=== PATIENT | male | born 1995 | race Caucasian/White ===

== ENCOUNTER 2018-02-07 23:16 | Inpatient (IN) | payer BC ==
[2018-02-08] MEDS: METOCLOPRAMIDE 10 MG INJ IV (05:21)
[2018-02-08] MEDS: DEXTROSE 5%-0.45% NACL 1,000 ML IV ×2 (05:23→17:03)
[2018-02-08] MEDS ORDERED: NACL 0.9% 3 ML SYG IV (05:30)
[2018-02-08] MEDS ORDERED: ALBUTEROL/IPRATROPIUM (NEB) 3 ML AMP HHN (05:30)
[2018-02-08] MEDS: morphine 4 MG/ML VIAL IV (05:31)
[2018-02-08] MEDS: PANTOPRAZOLE 40 MG INJ IV (05:33)
[2018-02-08 08:56] LABS: ADD MAN DIFF? NO
[2018-02-08 09:08] LABS: BASOPHIL # 0.1 10^3/ul (0.0-0.1); BASOPHILS % 0.3 % (0.0-2.0); EOSINOPHILS % 0.1 % (0.0-7.0); HEMATOCRIT 41.7 % (42.0-52.0); HEMOGLOBIN 14.7 g/dl (14.0-18.0); LYMPHOCYTES # 2.1 10^3/ul (0.8-2.9); LYMPHOCYTES % 13.8 % (18.0-55.0); MEAN CORPUSCULAR HEMOGLOBIN 29.2 pg (29.0-33.0); MEAN CORPUSCULAR HGB CONC 35.3 g/dl (32.0-37.0); MEAN CORPUSCULAR VOLUME 82.9 fl (72.0-104.0); MEAN PLATELET VOLUME 10.1 fl (7.4-10.4); MONOCYTE # 1.1 10^3/ul (0.3-0.9); MONOCYTES % 7.3 % (0.0-13.0); NEUTROPHIL # 11.9 10^3/ul (1.6-7.5); NEUTROPHILS % 77.9 % (30.0-74.0); PLATELET COUNT 309 10^3/UL (140-415); RED BLOOD COUNT 5.03 10^6/ul (4.70-6.10); RED CELL DISTRIBUTION WIDTH 12.9 % (11.5-14.5)
[2018-02-08 09:08] LABS: WHITE BLOOD COUNT 15.2 10^3/ul (4.8-10.8)
[2018-02-08 09:18] LABS: HEMOGLOBIN A1C 5.2 % (0-5.9)
[2018-02-08 09:30] LABS: ALANINE AMINOTRANSFERASE 24 IU/L (13-69); ALBUMIN 4.8 g/dl (3.3-4.9); ALBUMIN/GLOBULIN RATIO 1.45; ALKALINE PHOSPHATASE 90 IU/L (42-121); ANION GAP 12 (5-13); ASPARTATE AMINO TRANSFERASE 22 IU/L (15-46); BILIRUBIN,INDIRECT 1.7 mg/dl (0-1.1); BILIRUBIN,TOTAL 1.7 mg/dl (0.2-1.3); BLOOD UREA NITROGEN 11 mg/dl (7-20); CALCIUM 9.6 mg/dl (8.4-10.2); CARBON DIOXIDE 25 mmol/L (21-31); CHLORIDE 103 mmol/L (97-110); CREATININE 0.83 mg/dl (0.61-1.24); Estimated GFR > 60 mL/min (>60); GLUCOSE 117 mg/dl (70-220); MAGNESIUM 2.4 mg/dl (1.7-2.5); PHOSPHORUS 3.7 mg/dl (2.5-4.9); POTASSIUM 3.5 mmol/L (3.5-5.1); SODIUM 140 mmol/L (135-144); TOTAL PROTEIN 8.1 g/dl (6.1-8.1)
[2018-02-08 13:27] LABS: THYROID STIMULATING HORMONE 0.834 MIU/L (0.465-4.680)
[2018-02-09] MEDS: DEXTROSE 5%-0.45% NACL 1,000 ML IV ×4 (01:27→21:02)
[2018-02-09 05:56] LABS: ADD MAN DIFF? NO
[2018-02-09 06:00] LABS: BASOPHIL # 0.1 10^3/ul (0.0-0.1); BASOPHILS % 0.4 % (0.0-2.0); EOSINOPHILS # 0.1 10^3/ul (0.0-0.5); EOSINOPHILS % 0.8 % (0.0-7.0); HEMATOCRIT 41.9 % (42.0-52.0); HEMOGLOBIN 14.7 g/dl (14.0-18.0); LYMPHOCYTES % 33.8 % (18.0-55.0); MEAN CORPUSCULAR HEMOGLOBIN 29.8 pg (29.0-33.0); MEAN CORPUSCULAR HGB CONC 35.1 g/dl (32.0-37.0); MEAN CORPUSCULAR VOLUME 84.8 fl (72.0-104.0); MEAN PLATELET VOLUME 10.1 fl (7.4-10.4); MONOCYTE # 1.1 10^3/ul (0.3-0.9); MONOCYTES % 8.9 % (0.0-13.0); NEUTROPHIL # 6.6 10^3/ul (1.6-7.5); NEUTROPHILS % 55.4 % (30.0-74.0); PLATELET COUNT 282 10^3/UL (140-415); RED BLOOD COUNT 4.94 10^6/ul (4.70-6.10); RED CELL DISTRIBUTION WIDTH 12.8 % (11.5-14.5)
[2018-02-09] MEDS: PANTOPRAZOLE 40 MG INJ IV (06:00)
[2018-02-09 06:20] LABS: ANION GAP 13 (5-13); BLOOD UREA NITROGEN 12 mg/dl (7-20); CALCIUM 9.6 mg/dl (8.4-10.2); CARBON DIOXIDE 29 mmol/L (21-31); CHLORIDE 101 mmol/L (97-110); CREATININE 0.78 mg/dl (0.61-1.24); Estimated GFR > 60 mL/min (>60); GLUCOSE 107 mg/dl (70-220); MAGNESIUM 2.3 mg/dl (1.7-2.5); PHOSPHORUS 4.6 mg/dl (2.5-4.9); POTASSIUM 3.8 mmol/L (3.5-5.1); SODIUM 143 mmol/L (135-144)
[2018-02-09] MEDS: ONDANSETRON 4 MG INJ IV (08:42)
[2018-02-09] MEDS: morphine 4 MG/ML VIAL IV ×2 (08:43→16:46)
[2018-02-09] MEDS: METOCLOPRAMIDE 10 MG INJ IV ×2 (11:05→16:46)
[2018-02-09] MEDS: LIDOCAINE/MYLANTA 40 ML BTL PO (18:21)
[2018-02-09] MEDS: TRIMETHOBENZAMIDE 100 MG/ML VIAL IM (18:22)
[2018-02-09] MEDS: HYOSCYAMINE 0.125 MG SUBL TAB SL (20:58)
[2018-02-09] MEDS: SOD CHLORIDE 0.9% 100 ML (22:00)
[2018-02-09] MEDS: IOHEXOL 300MG/ML 150 ML BTL (22:00)
[2018-02-10] MEDS: HYOSCYAMINE 0.125 MG SUBL TAB SL ×3 (00:09→12:52)
[2018-02-10] MEDS: METOCLOPRAMIDE 10 MG INJ IV ×3 (00:09→12:52)
[2018-02-10] MEDS: ONDANSETRON 4 MG INJ IV (03:03)
[2018-02-10] MEDS: morphine 4 MG/ML VIAL IV (03:39)
[2018-02-10 05:27] LABS: ADD MAN DIFF? NO
[2018-02-10 05:32] LABS: BASOPHIL # 0.1 10^3/ul (0.0-0.1); BASOPHILS % 0.4 % (0.0-2.0); EOSINOPHILS % 0.1 % (0.0-7.0); HEMATOCRIT 41.3 % (42.0-52.0); HEMOGLOBIN 14.4 g/dl (14.0-18.0); LYMPHOCYTES # 1.7 10^3/ul (0.8-2.9); MEAN CORPUSCULAR HEMOGLOBIN 29.1 pg (29.0-33.0); MEAN CORPUSCULAR HGB CONC 34.9 g/dl (32.0-37.0); MEAN CORPUSCULAR VOLUME 83.4 fl (72.0-104.0); MEAN PLATELET VOLUME 10.1 fl (7.4-10.4); MONOCYTES % 8.6 % (0.0-13.0); NEUTROPHIL # 9.2 10^3/ul (1.6-7.5); NEUTROPHILS % 76.4 % (30.0-74.0); PLATELET COUNT 282 10^3/UL (140-415); RED BLOOD COUNT 4.95 10^6/ul (4.70-6.10); RED CELL DISTRIBUTION WIDTH 12.6 % (11.5-14.5)
[2018-02-10 05:52] LABS: ANION GAP 11 (5-13); BLOOD UREA NITROGEN 5 mg/dl (7-20); CALCIUM 9.1 mg/dl (8.4-10.2); CARBON DIOXIDE 25 mmol/L (21-31); CHLORIDE 103 mmol/L (97-110); CREATININE 0.65 mg/dl (0.61-1.24); Estimated GFR > 60 mL/min (>60); GLUCOSE 131 mg/dl (70-220); POTASSIUM 3.3 mmol/L (3.5-5.1); SODIUM 139 mmol/L (135-144)
[2018-02-10] MEDS: PANTOPRAZOLE 40 MG INJ IV (06:03)
[2018-02-10] MEDS: DEXTROSE 5%-0.45% NACL 1,000 ML IV (06:09)
[2018-02-10] MEDS: POTASSIUM CHLORIDE (SR) 20 MEQ TAB PO (12:52)
== END 2018-02-10 15:17 | disposition home or self-care (01) | DRG 392 ==
LOC: PP2 23:16
DX: K52.9 Noninfective gastroenteritis and colitis, unspecified (principal); K56.7 Ileus, unspecified
CPT/HCPCS: 74018; 74178; 80048; 80053; 83036; 83735; 84100; 84443; 85025